=== PATIENT | female | born 1980 | race Two or more races ===

== ENCOUNTER 2020-01-16 12:25 | Outpatient (REF) | payer OTHER, SELFPAY ==
[2020-01-16 12:55] LABS: MANUAL DIFF FLAG NO
[2020-01-16 13:00] LABS: Basophils Percent Auto 0.2 % (0-2); Eosinophils Absolute Auto 0.1 X10*3/uL (0.0-0.4); Eosinophils Percent Auto 0.6 % (0-4); Hematocrit 41.4 % (37-47); Hemoglobin 13.8 g/dl (12.0-16.0); Imm Gran Abs Auto 0.04 X10*3/uL (0.00-0.03); Imm Gran Pct Auto 0.3 % (0.0-0.4); Lymphocytes Absolute Auto 4.3 X10*3/uL (1.2-4.9); Lymphocytes Percent Auto 33.5 % (20-40); Mean Corpuscular HGB Conc 33.3 g/dl (31.0-35.0); Mean Corpuscular Hemoglobin 31.5 pg (27.0-33.0); Mean Corpuscular Volume 94.5 fL (80-98); Mean Platelet Volume 10.1 fL (9.4-12.3); Monocytes Absolute Auto 0.8 X10*3/uL (0.1-1.2); Monocytes Percent Auto 5.9 % (2-11); Neutrophils Absolute Auto 7.6 X10*3/uL (2.0-8.3); Neutrophils Percent Auto 59.5 % (45-73); Platelet Count 293 X10*3/uL (160-400); Red Blood Count 4.38 X10*6/uL (4.20-5.50); Red Cell Distribution Width 13.2 % (11.0-16.0); White Blood Count 12.8 X10*3/uL (4.8-10.8)
[2020-01-16 14:11] LABS: Anion Gap 12 (12-20); Blood Urea Nitrogen 9 mg/dL (9-16); Carbon Dioxide 28 mmol/L (22-29); Chloride 104 mmol/L (96-108); Cholesterol 121 mg/dL; Estimated Glomerular Filt Rate > 60; Glucose Fasting 85 mg/dL (60-99); HDL Cholesterol 36 mg/dL; LDL Cholesterol Calculated 70 mg/dl; Potassium 4.7 mmol/l (3.3-5.1); Sodium 139 mmol/L (135-145); Triglycerides 77 mg/dL
[2020-01-16 14:34] LABS: TSH reflex Free T4 0.65 mIU/mL (0.32-4.0)
== END 2020-01-16 12:26 | disposition home or self-care (01) ==
LOC: HO.LAB 12:25
PROVIDERS: PCP Nurse Practitioner Family; Visit Provider Nurse Practitioner Family
DX: M19.90 Unspecified osteoarthritis, unspecified site (principal); J45.909 Unspecified asthma, uncomplicated; Z83.49 Family history of other endocrine, nutritional and metabolic diseases
CPT/HCPCS: 36415; 80048; 80061; 84443; 85025

== ENCOUNTER 2020-02-14 08:45 | Outpatient (REF) | payer OTHER, SELFPAY ==
[2020-02-21 12:03] LABS: HPV mRNA E6/E7 rflx Not Detected (Not Detected)
== END 2020-02-14 08:46 | disposition home or self-care (01) ==
LOC: HO.LAB 08:45
PROVIDERS: PCP Nurse Practitioner Family; Visit Provider Advanced Practice Midwife
DX: Z12.4 Encounter for screening for malignant neoplasm of cervix (principal)
CPT/HCPCS: 87624; 87625; 88142

== ENCOUNTER 2020-02-18 12:18 | Outpatient (REF) | payer OTHER, SELFPAY ==
--- NOTE | 2020-02-18 12:21 | MM_ITS ---
EXAMINATION: MM SCREENING DIGITAL BREAST TOMOSYNTHESIS, BILATERAL CLINICAL INFORMATION: Screening. Asymptomatic. No prior breast imaging. Age 40. No known family history breast cancer. The lifetime risk of breast cancer based on the Tyrer-Cuzick Model is 9%. COMPARISON: None (current study represents initial baseline exam). TECHNIQUE: Digital breast tomosynthesis is performed in both the craniocaudal and mediolateral oblique views along with computer-aided detection (CAD). Synthesized 2D images are generated from the tomosynthesis. FINDINGS: There are scattered areas of fibroglandular density (ACR BI-RADS breast composition Category b). There is benign-appearing parenchymal asymmetry right breast upper outer quadrant mid to posterior depth. Neither breast shows significant mass or architectural abnormality or abnormal calcifications. The axilla are unremarkable. The skin contours are smooth. MM/MM tomosynthesis screening BI IMPRESSION: No mammographic evidence of malignancy. ASSESSMENT: BI-RADS 2: Benign RECOMMENDATION: Routine annual mammography screening. This patient's information was entered into a reminder system with a target due date for their next mammogram.
== END 2020-02-18 12:19 | disposition home or self-care (01) ==
LOC: HO.MAMMO 12:18
PROVIDERS: PCP Nurse Practitioner Family; Visit Provider Advanced Practice Midwife
DX: Z12.31 Encounter for screening mammogram for malignant neoplasm of breast (principal)
CPT/HCPCS: 77063; 77067

== ENCOUNTER 2020-04-29 09:31 | Outpatient (RCR) | payer OTHER, SELFPAY | END 2020-07-07 16:11 | disposition other institution (70) | LOC: HO.OT 09:31 | PROVIDERS: PCP Physician Assistant; Visit Provider Physician Assistant | DX: M25.532 Pain in left wrist (principal) | CPT/HCPCS: 97166 ==

== ENCOUNTER 2020-04-30 09:18 | Outpatient (REF) | payer OTHER, SELFPAY | END 2020-04-30 09:19 | disposition home or self-care (01) | LOC: HO.LAB 09:18 | PROVIDERS: Visit Provider Internal Medicine | DX: Z20.822 Contact with and (suspected) exposure to COVID-19 (principal); R20.0 Anesthesia of skin; R20.2 Paresthesia of skin; M19.032 Primary osteoarthritis, left wrist; M93.1 Kienbock's disease of adults | CPT/HCPCS: 36415; 99202; C9803; U0003; U0005 ==

== ENCOUNTER 2020-04-30 09:31 | Outpatient (REF) | payer OTHER, SELFPAY ==
--- NOTE | ~2020-04-30 | XR_ITS ---
EXAMINATION: LEFT WRIST CLINICAL INFORMATION: Pain COMPARISON: None TECHNIQUE: 4 views of the left wrist including scaphoid view. FINDINGS: Patient is status post plate and side screw fixation of distal left radial fracture with hardware intact. There appears be neutral angulation of the radiocarpal joint. There is some narrowing of the radiocarpal joint with some mild irregularity and sclerosis. A screw is seen for fusion of the scaphoid and capitate degenerative changes seen about the proximal and mid carpal rows. There is compression fracture involving the lunate No definite acute fracture is appreciated. XR/XR wrist LT w scaphoid IMPRESSION: Postsurgical change of the left distal radius and wrist as described. Hardware intact. No definite acute fracture is appreciated.
== END 2020-04-30 09:32 | disposition home or self-care (01) ==
LOC: HO.HOSX 09:31
PROVIDERS: Visit Provider Orthopaedic Surgery
DX: M25.532 Pain in left wrist (principal); R20.0 Anesthesia of skin; R20.2 Paresthesia of skin
CPT/HCPCS: 73110

== ENCOUNTER 2020-06-03 10:22 | Outpatient (REF) | payer OTHER, SELFPAY ==
[2020-06-03 11:03] LABS: COVID-19 Test Negative (Negative)
== END 2020-06-03 10:23 | disposition home or self-care (01) ==
LOC: HO.LAB 10:22
PROVIDERS: Visit Provider Internal Medicine
DX: Z20.822 Contact with and (suspected) exposure to COVID-19 (principal)
CPT/HCPCS: 36415; 87635; C9803

== ENCOUNTER 2020-09-16 14:45 | Outpatient (REF) | payer OTHER, SELFPAY ==
[2020-09-18 21:26] LABS: TS Negative Control Passed; TS Panel A 0; TS Panel B 0; TS Positive Control Passed; TSpotTB Negative (SeeBelow)
== END 2020-09-16 14:46 | disposition home or self-care (01) ==
LOC: HO.LAB 14:45
PROVIDERS: PCP Physician Assistant; Visit Provider Physician Assistant
DX: Z01.84 Encounter for antibody response examination (principal); Z11.1 Encounter for screening for respiratory tuberculosis
CPT/HCPCS: 36415; 86481

== ENCOUNTER 2020-12-19 10:23 | Outpatient (REF) | payer OTHER, SELFPAY ==
[2020-12-19 11:17] LABS: Hematocrit 39.8 % (37-47); Hemoglobin 13.1 g/dl (12.0-16.0); Mean Corpuscular HGB Conc 32.9 g/dl (31.0-35.0); Mean Corpuscular Hemoglobin 30.2 pg (27.0-33.0); Mean Corpuscular Volume 91.7 fL (80-98); Mean Platelet Volume 10.1 fL (9.4-12.3); Platelet Count 367 X10*3/uL (160-400); Red Blood Count 4.34 X10*6/uL (4.20-5.50); Red Cell Distribution Width 13.9 % (11.0-16.0); White Blood Count 8.5 X10*3/uL (4.8-10.8)
[2020-12-19 11:21] LABS: Estimated Average Glucose 105 mg/dL; Hemoglobin A1c % 5.3 %
[2020-12-19 12:02] LABS: Alanine Aminotransferase 10 U/L (0-31); Albumin Level 4.3 g/dL (3.5-5.0); Alkaline Phosphatase 71 U/L (39-117); Anion Gap 12 (12-20); Aspartate Amino Transferase 12 U/L (5-31); Bilirubin Total 0.3 mg/dL (0.0-1.0); Blood Urea Nitrogen 9 mg/dL (9-16); Calcium 9.6 mg/dL (8.4-10.2); Carbon Dioxide 28 mmol/L (22-29); Chloride 105 mmol/L (96-108); Cholesterol 143 mg/dL; Estimated Glomerular Filt Rate > 60; Glucose Fasting 92 mg/dL (60-99); HDL Cholesterol 35 mg/dL; LDL Cholesterol Calculated 89 mg/dl; Potassium 5.3 mmol/L (3.3-5.1); Sodium 140 mmol/L (135-145); Total Protein 7.2 g/dL (6.5-8.0); Triglycerides 96 mg/dL
[2020-12-19 12:07] LABS: TSH reflex Free T4 0.43 uIU/mL (0.32-4.0)
== END 2020-12-19 10:24 | disposition home or self-care (01) ==
LOC: HO.LAB 10:23
PROVIDERS: PCP Physician Assistant; Visit Provider Physician Assistant
DX: Z13.29 Encounter for screening for other suspected endocrine disorder (principal); Z13.220 Encounter for screening for lipoid disorders; I10 Essential (primary) hypertension; J45.909 Unspecified asthma, uncomplicated
CPT/HCPCS: 36415; 80053; 80061; 83036; 84443; 85027

== ENCOUNTER 2021-11-23 08:21 | Outpatient (REF) | payer OTHER, SELFPAY ==
[2021-11-23 09:13] LABS: Hematocrit 39.7 % (37.0-47.0); Hemoglobin 13.3 g/dl (12.0-16.0); Mean Corpuscular HGB Conc 33.5 g/dl (31.0-35.0); Mean Corpuscular Hemoglobin 30.4 pg (27.0-33.0); Mean Corpuscular Volume 90.8 fL (80.0-98.0); Mean Platelet Volume 9.8 fL (9.4-12.3); Platelet Count 361 X10*3/uL (160-400); Red Blood Count 4.37 X10*6/uL (4.20-5.50); Red Cell Distribution Width 14.8 % (11.0-16.0); White Blood Count 8.3 X10*3/uL (4.8-10.8)
[2021-11-23 09:39] LABS: Alanine Aminotransferase 12 U/L (0-31); Albumin Level 4.1 g/dL (3.5-5.0); Alkaline Phosphatase 59 U/L (39-117); Anion Gap 15 (12-20); Aspartate Amino Transferase 14 U/L (5-31); Bilirubin Total 0.4 mg/dL (0.0-1.0); Blood Urea Nitrogen 11 mg/dL (9-16); Calcium 9.7 mg/dL (8.4-10.2); Carbon Dioxide 26 mmol/L (22-29); Chloride 105 mmol/L (96-108); Estimated Glomerular Filt Rate > 60; Glucose Fasting 88 mg/dL (60-99); Potassium 4.8 mmol/L (3.3-5.1); Sodium 141 mmol/L (135-145); Total Protein 6.7 g/dL (6.5-8.0)
[2021-11-23 10:01] LABS: TSH reflex Free T4 0.33 uIU/mL (0.32-4.0)
== END 2021-11-23 08:22 | disposition home or self-care (01) ==
LOC: HO.LAB 08:21
PROVIDERS: PCP Physician Assistant; Visit Provider Physician Assistant
DX: Z13.1 Encounter for screening for diabetes mellitus (principal); Z13.29 Encounter for screening for other suspected endocrine disorder
CPT/HCPCS: 36415; 80053; 84443; 85027

== ENCOUNTER 2022-03-26 15:08 | Outpatient (REF) | payer OTHER, SELFPAY ==
--- NOTE | ~2022-03-26 | XR_ITS ---
EXAMINATION: XR ELBOW, RIGHT CLINICAL INFORMATION: Pain COMPARISON: None TECHNIQUE: AP, lateral, and oblique views of the right elbow. FINDINGS: No visible acute fracture or dislocation. No significant joint effusion. Alignment is anatomic. Joint spaces are maintained. No abnormal soft tissue calcification. XR/XR elbow RT min 3V IMPRESSION: No acute osseous abnormality seen.
== END 2022-03-26 15:09 | disposition home or self-care (01) ==
LOC: HO.XRAY 15:08
PROVIDERS: PCP Physician Assistant; Visit Provider Nurse Practitioner Family
DX: M25.521 Pain in right elbow (principal)
CPT/HCPCS: 73080

== ENCOUNTER → 2022-04-06 13:57 | Outpatient (BNVA) | payer OTHER, SELFPAY | PROVIDERS: PCP Physician Assistant; Visit Provider Physician Assistant | DX: M77.11 Lateral epicondylitis, right elbow (principal) | CPT/HCPCS: 99202 ==

== ENCOUNTER 2022-04-12 13:52 | Outpatient (REF) | payer OTHER, SELFPAY ==
[2022-04-12 14:40] LABS: Influenza A PCR NEGATIVE (Negative); Influenza B PCR NEGATIVE (Negative); Resp Syncy Virus RNA Qual PCR NEGATIVE (Negative); SARS COV2 PCR INHOUSE NEGATIVE (Negative)
== END 2022-04-12 13:53 | disposition home or self-care (01) ==
LOC: HO.LNP 13:52
PROVIDERS: Visit Provider Physician Assistant
DX: Z20.822 Contact with and (suspected) exposure to COVID-19 (principal); B34.9 Viral infection, unspecified
CPT/HCPCS: 0241U

== ENCOUNTER 2022-05-05 09:57 | Outpatient (REF) | payer OTHER, SELFPAY ==
--- NOTE | ~2022-05-05 | MM_ITS ---
EXAMINATION: MM SCREENING DIGITAL BREAST TOMOSYNTHESIS, BILATERAL CLINICAL INFORMATION: Screening. Asymptomatic. The lifetime risk of breast cancer based on the Tyrer-Cuzick Model is 9%. COMPARISON: Mammography: 02/18/2020 (baseline) TECHNIQUE: Digital breast tomosynthesis is performed in both the craniocaudal and mediolateral oblique views along with computer-aided detection (CAD). Synthesized 2D images are generated from the tomosynthesis. FINDINGS: There are scattered areas of fibroglandular density (ACR BI-RADS breast composition Category b). Parenchymal pattern is similar to prior baseline exam. There is no developing density or architectural abnormality. There are no significant masses, abnormal calcifications, or other abnormalities. The axilla and skin contours are unremarkable. MM/MM tomosynthesis screening BI IMPRESSION: No mammographic evidence of malignancy. ASSESSMENT: BI-RADS 2: Benign RECOMMENDATION: Routine annual mammography screening. This patient's information was entered into a reminder system with a target due date for their next mammogram.
== END 2022-05-05 09:58 | disposition home or self-care (01) ==
LOC: HO.MAMMO 09:57
PROVIDERS: PCP Physician Assistant; Visit Provider Physician Assistant
DX: Z12.31 Encounter for screening mammogram for malignant neoplasm of breast (principal)
CPT/HCPCS: 77063; 77067

== ENCOUNTER 2022-06-15 11:30 | Outpatient (RCR) | payer OTHER, SELFPAY ==
--- NOTE | 2022-05-14 14:41 | MHC.OT.EP ---
[address] [phone] Occupational Therapy Plan of Care Patient Name: Danni Roberts Date of Evaluation: 05/14/22 Diagnosis: Right elbow pain Pain Location: 3-9 right elbow Pain Score: 9 Pain Scale Used: Numeric (0 - 10) Aggravating Factors: Shoulder and elbow motion. gripping Alleviating Factors: Arm in sling. 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 Today she presents with elbow pain with AROM worsening with gripping activities Saw Feeder strength is 5 lb inc to 15 lb with use of a CFB trialed today Pt will benefit from OT for continued pt ed on self management and OT treatment for elbow pain She is scheduled with Orthopedics on 05/24/22 , anticipating an elbow injection Frequency and Duration: The patient will be seen 2x wk x 6 wks Short Term Goals: Demo indep with thermal modalities for pain Demo indep with activity modifications with homemaking tasks Demo inc ease with elbow AROM Dec elbow pain to 6/10 at worst with protection techniques as needed Manufacturing Manager Goals: Demo pain free elbow AROM Demo right vault manager to > 25 lb Demo proper tech with lifting for elbow protection Pain-free at rest Quick DASH to < 30 pts Treatment Plan: Therapeutic Exercise Therapeutic Activity Home Exercise Program Patient Education ADL Training Ultrasound Iontophoresis MHP Cold Packs Soft Tissue Mobilization Electronically Signed By: Lucía Gross OT CHT CLT Please Sign and return to therapist. Thank you once again for your referral.
--- NOTE | 2022-06-30 10:28 | MHC.OT.DC ---
[address] [phone] F: [phone] Occupational Therapy Discharge Note Patient Name: Danni Roberts Provider: Mary Lou Chris Diagnosis: Right elbow pain Date of Surgery: Date of Evaluation: 05/14/22 Date of Discharge: 06/30/22 Treatments to Date: 4 Cancellations to Date: 3 No Shows to Date: 3 Discharge Status: Recommend MD Follow-up Visit Non-compliance Discharge Summary: Some improvement in pain noted with progression of exercise tolerance, other arellano no change noted Electronically Signed By: Lucía Gross OT CHT CLT Reviewed/agree with student documentation: Therapist: Please Sign and return to therapist, thank you for your referral.
== END 2022-06-30 10:29 | disposition home or self-care (01) ==
LOC: HO.OT 11:30
PROVIDERS: PCP Physician Assistant; Visit Provider Nurse Practitioner Family
DX: M25.521 Pain in right elbow (principal)
CPT/HCPCS: 97033; 97110; 97165

== ENCOUNTER 2022-07-09 09:41 | Outpatient (REF) | payer OTHER, SELFPAY ==
--- NOTE | ~2022-07-09 | XR_ITS ---
EXAMINATION: XR LUMBOSACRAL SPINE CLINICAL INFORMATION: Low back pain. COMPARISON: None. TECHNIQUE: Three views of the lumbosacral spine. FINDINGS: There is transitional lumbosacral anatomy. There is mild levoscoliosis of the lumbar spine. Normal sagittal alignment. Vertebral body heights are maintained. Intervertebral disc spaces are preserved. A surgical clip projects over the pelvis. Sacroiliac joints are intact. XR/XR lumbar spine 2-3V IMPRESSION: No acute abnormality.
[2022-07-09 10:29] LABS: Hematocrit 40.6 % (37.0-47.0); Hemoglobin 13.5 g/dl (12.0-16.0); Mean Corpuscular HGB Conc 33.3 g/dl (31.0-35.0); Mean Corpuscular Hemoglobin 30.4 pg (27.0-33.0); Mean Corpuscular Volume 91.4 fL (80.0-98.0); Mean Platelet Volume 9.9 fL (9.4-12.3); Platelet Count 285 X10*3/uL (160-400); Red Blood Count 4.44 X10*6/uL (4.20-5.50); Red Cell Distribution Width 14.6 % (11.0-16.0); White Blood Count 8.3 X10*3/uL (4.8-10.8)
[2022-07-09 11:15] LABS: Alanine Aminotransferase 9 U/L (0-31); Albumin Level 4.3 g/dL (3.5-5.0); Alkaline Phosphatase 53 U/L (39-117); Anion Gap 11 (12-20); Aspartate Amino Transferase 14 U/L (5-31); Bilirubin Total 0.5 mg/dL (0.0-1.0); Blood Urea Nitrogen 11 mg/dL (9-16); Calcium 9.7 mg/dL (8.4-10.2); Carbon Dioxide 27 mmol/L (22-29); Chloride 108 mmol/L (96-108); Estimated Glomerular Filt Rate > 60; Glucose Fasting 87 mg/dL (60-99); Potassium 5.1 mmol/L (3.3-5.1); Sodium 141 mmol/L (135-145); Total Protein 6.8 g/dL (6.5-8.0)
[2022-07-09 11:24] LABS: HIV AB/AG Nonreactive (Nonreactive); HIV Num 1 0.07 S/CO (0.00-0.99)
[2022-07-09 11:46] LABS: Folate 11.5 ng/mL (> or = 4.0); Vitamin B12 638 pg/mL (200-900)
== END 2022-07-09 09:42 | disposition home or self-care (01) ==
LOC: HO.XRAY 09:41
PROVIDERS: PCP Physician Assistant; Visit Provider Physician Assistant
DX: Z13.1 Encounter for screening for diabetes mellitus (principal); Z11.4 Encounter for screening for human immunodeficiency virus [HIV]; Z11.3 Encounter for screening for infections with a predominantly sexual mode of transmission; E53.8 Deficiency of other specified B group vitamins; R63.4 Abnormal weight loss; M54.50 Low back pain, unspecified
CPT/HCPCS: 36415; 72100; 80053; 82607; 82746; 85027; 87389

== ENCOUNTER 2022-07-22 11:51 | Outpatient (REF) | payer OTHER, SELFPAY ==
--- NOTE | ~2022-07-22 | XR_ITS ---
EXAMINATION: XR LUMBOSACRAL SPINE CLINICAL INFORMATION: Low back pain. COMPARISON: 07/09/[address] scan of the abdomen and pelvis dated 07/23/2009. TECHNIQUE: Three views of the lumbosacral spine. FINDINGS: L5-S1 is transitional with sacralization of L5. A rudimentary disc is seen at L5-S1. There is normal lumbar lordosis and spinal alignment. The vertebral bodies are intact. The remainder of the intervertebral disc spaces are unremarkable. The soft tissues are unremarkable. XR/XR lumbar spine 2-3V IMPRESSION: Transitional L5-S1. Rudimentary disc at L5-S1. No acute abnormality or significant degenerative changes.
== END 2022-07-22 11:52 | disposition home or self-care (01) ==
LOC: HO.HMGCX 11:51
PROVIDERS: PCP Physician Assistant; Visit Provider Nurse Practitioner Family
DX: M54.50 Low back pain, unspecified (principal)
CPT/HCPCS: 72100

== ENCOUNTER → 2022-08-03 08:39 | Outpatient (BNVA) | payer OTHER, SELFPAY | PROVIDERS: PCP Physician Assistant; Visit Provider Physician Assistant | DX: M77.11 Lateral epicondylitis, right elbow (principal) | CPT/HCPCS: 20551; 99212; J1040 ==

== ENCOUNTER 2022-08-05 08:39 | Outpatient (REF) | payer OTHER, SELFPAY ==
[2022-08-05 09:30] LABS: Hemoglobin 13.2 g/dl (12.0-16.0); Mean Corpuscular HGB Conc 33.8 g/dl (31.0-35.0); Mean Corpuscular Volume 91.5 fL (80.0-98.0); Mean Platelet Volume 10.5 fL (9.4-12.3); Platelet Count 295 X10*3/uL (160-400); Red Blood Count 4.26 X10*6/uL (4.20-5.50); Red Cell Distribution Width 14.6 % (11.0-16.0); White Blood Count 13.2 X10*3/uL (4.8-10.8)
[2022-08-05 10:51] LABS: Iron 34 mcg/dL (30-160); Percent Iron Saturation 13 % (15-50); Total Iron Binding Capacity 269 mcg/dL (228-428); Unsaturated Iron Binding 235 ug/dL
== END 2022-08-05 08:40 | disposition home or self-care (01) ==
LOC: HO.LAB 08:39
PROVIDERS: PCP Physician Assistant; Visit Provider Physician Assistant
DX: D50.9 Iron deficiency anemia, unspecified (principal); R53.1 Weakness
CPT/HCPCS: 36415; 83540; 85027

== ENCOUNTER 2022-08-30 09:47 | Outpatient (RCR) | payer OTHER, SELFPAY ==
--- NOTE | 2022-09-01 09:23 | MHC.PT.EP ---
[facility] [place] Office [place] Office [place] Office [address] [phone] F: [phone] F: [phone] F: [phone] F: [phone] Physical Therapy Plan of Care Date of Evaluation: Date of Surgery: Diagnosis: low back pain and thoracolumbar and lumbosacral intervertebral disc disorder. (MD Dx) bilateral lumbar radiculopathy and core weakness. (PT Dx) Assessment: Patient is a pleasant 42 y.o. female who is referred to PT by Sid Damon PA-C, with Dx of low back pain and thoracolumbar and lumbosacral intervertebral disc disorder. PT diagnosis is bilateral lumbar radiculopathy and core weakness. Patient impairments include pain, radiculopathy, limited ROM, weakness in core and hips, labored transfers. Patient current functional limitations are lying in bed, rolling over in bed, supine to sit, sit to stand, bend/squat to clean, prolonged sitting, prolonged walking. Patient will benefit from skilled PT to address aforementioned impairments and functional limitations to meet established goals. Frequency and Duration: The patient will be seen 1-2x/week for 4 weeks Short Term Goals: 2 weeks Patient demonstrates consistency and independence with HEP to self manage symptoms. Patient is able to centralize LE radicular symptoms with education and exercises. Nursing Home Goals: 4 weeks Patient presents with increased bilateral glute med strength 4+/5 to be able to perform sit to stand without sxs. Patient presents with increased lumbar flexion 95 degrees to be able to bend/squat to clean. Treatment Plan: Modalities to reduce pain, spasms and effusion. Manual therapy to restore motion and function. Therapeutic exercise to improve strength and flexibility. Neuromuscular re-education for posture and balance. Therapeutic activities to return to functional activities of daily living. Electronically signed by: Lambert Yañez, PT, DPT Please sign and return to therapist. Thank you for your referral.
--- NOTE | 2022-10-05 14:18 | MHC.PT.DC ---
[facility] [place] Office [place] Office [place] Office [address] [phone] F: [phone] F: [phone] F: [phone] F: [phone] Physical Therapy Discharge Report Diagnosis: low back pain and thoracolumbar and lumbosacral intervertebral disc disorder. (MD Dx) bilateral lumbar radiculopathy and core weakness. (PT Dx) Date of Surgery: Date of Evaluation: 08/30/22 Date of Discharge: 10/05/22 Treatments to Date: 1 Cancellations to Date: 2 No Shows to Date: 2 Discharge Status: Visit Non-compliance Discharge Summary: Patient canceled or did not show to any FUP visits after PT initial evaluation. Therefore she is discharged from PT at this time. Unable to determine effectiveness of PT on patient condiditoin due to she did not attend and FUP visits. Electronically signed by: Lambert Yañez, PT, DPT Please sign and return to therapist. Thank you for your referral.
== END 2022-10-05 14:19 | disposition home or self-care (01) ==
LOC: HO.PT 09:47
PROVIDERS: PCP Physician Assistant; Visit Provider Physician Assistant
DX: M51.9 Unspecified thoracic, thoracolumbar and lumbosacral intervertebral disc disorder (principal); M54.50 Low back pain, unspecified
CPT/HCPCS: 97110; 97161

== ENCOUNTER 2023-01-19 10:28 | Outpatient (AMB) | payer OTHER, SELFPAY ==
[2023-01-19 10:44] VITALS: BMI 19.9
--- NOTE | 2023-01-19 10:44 | A.OFFVIS_ITS ---
Intake VS Expanded 01/19/23 10:44 Height 5 ft 3 in Weight 112 lb 6.972 oz BMI 19.9 Intake Visit Reasons: Abnormal Weight Loss Allergies penicillin V Allergy (Unknown, Verified 08/10/22 15:54) rash Penicillins Allergy (Unknown, Verified 08/10/22 15:54) Rash bupropion [From Wellbutrin SR] Adverse Reaction (Intermediate, Verified 08/10/22 15:54) Hallucinations trazodone Adverse Reaction (Intermediate, Verified 08/10/22 15:54) Drowsy Percocet Allergy (Unknown, Uncoded 08/10/22 15:54) itching HPI Nutrition Presentation Details Pt presents for MNT for abnormal weight loss. Pt was referred by Bobbi Damon, PCP Pt 's weight at 119 lb in 05/2022, (121-126 in 2021) , 142 (2020) Pt reports having hx of TOSHIA and MDD. She reports working on having snacks throughout the day to prevent weight loss. Pt denies vomiting, denies diarrhea, constipation, reports sometimes having reduced appetite. Pt cooks for self 6-7 am skips breakfast for the most part always has coffee with brown sugar/heavy cream (likes scrambled eggs or sandwich , orange or coffee brown sugar heavy cream) 11 am drinks juice and pork sandwich) , 5 pm : pork chop and rice or rice with beef steak and potatoes and heidi snacking rice cakes or doritos, drinks juice food frequency: fish twice /week : with celery and onions milk /day 0-1/day fruits weekly 2 -3 times starches: 12-16 oz/ physical: daily life activities, SAV-Fomjtuy-Rc.Jeor Equation Height 5 ft 3 in Weight 112 lb Resting Metabolic Rate 1135.08 Calculated Activity Level Moderate Activity Calories Needed to Maintain Weight 1759.37 Diagnosis Nutrition problem #1 unintended weight loss As related to (etiology) #1 diagnosis As evidenced by (sign/symptom) #1 weight loss Monitoring/Goals Nutrition problem monitoring level of knowledge/skill and weight Outcome comment Incorporate breakfast on a daily basis Most Recent Diabetes Results: Creatinine 0.78 mg/dL (0.5-1.4) 07/09/22 Blood Urea Nitrogen 11 mg/dL (9-16) 07/09/22 Sodium 141 mmol/L (135-145) 07/09/22 Potassium 5.1 mmol/L (3.3-5.1) 07/09/22 Chloride 108 mmol/L (96-108) 07/09/22 Carbon Dioxide 27 mmol/L (22-29) 07/09/22 Calcium 9.7 mg/dL (8.4-10.2) 07/09/22 AST 14 U/L (5-31) 07/09/22 ALT 9 U/L (0-31) 07/09/22 Total Protein 6.8 g/dL (6.5-8.0) 07/09/22 Albumin 4.3 g/dL (3.5-5.0) 07/09/22 [facility] Medical History Arthritis Asthma Carpal tunnel syndrome Ectopic Family history of thyroid disease Kienb?ck's disease Surgical History History of carpal tunnel release History of ectopic History of surgery on arm Family History Father Arthritis Diabetes mellitus HTN (hypertension) Asthma Mother Arthritis Asthma Diabetes mellitus HTN (hypertension) Herniated disc Anxiety Mental health disorder Maternal Grandmother Arthritis Diabetes mellitus Maternal Grandfather Arthritis Diabetes mellitus Paternal Grandmother Arthritis Diabetes mellitus Paternal Grandfather Arthritis Diabetes mellitus Social History Housing: Apartment Alcohol intake: current Alcohol intake frequency: holidays/special occasions only Patient Tobacco Use Status: Current everyday Tobacco user Tobacco use type: Cigarette Cigarettes Per Day: 8 e-Cigarette/Vaping Use: Never Used Second Hand Smoke Exposure: Yes service: No Current occupational status: employed 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[employer] Gender identity: Female Cognitive needs: No Hearing needs: No Vision needs: Yes (Glasses) Female Reproductive History Menstrual Age of Menarche: 13 Assessment & Plan Assessment & Plan (1) Weight loss: Code(s): R63.4 - Abnormal weight loss Plan: wt : 51 kg Est kcal needs as per MSJ: 1800 + 1000/2000 = 9315-2250 clinton (40% carb, 30% protein/fat) Est fluid needs as per 25-30 ml/d: 1500 Est prot per day as per 1 g/kg bw: 51 Recommend fiber intake : 8-10 g per day and gradually increase to 25-28 g per day for women and 35-38 g for men or as tolerated Recommend sodium intake per day : less than 2000 mg Educated patient on: ( R = reviewed V = verbalizes understanding N/R = needs review N/A = not applicable Increasing calories by 500-1000 per day to promote weight gain * Patient Instructions: Include breakfast meal on a daily basis having a combination of protein/starch/fruit and fats: see meal ideas printed * Sand with egg/ham/cheese /lettuce/tomato), coffee/milk/sugar * oatmeal cereal with milk, fruit/nuts * meal supplement continue to have lunch/dinner/snacks as established Drink juice or milk with your meals Coding Level of Care Code Nutr Indiv Intake (17972) Diagnoses Weight loss R63.4 Time Spent (min) 30
[2023-02-01 13:13] VITALS: BMI 19.8
== END 2023-01-19 11:25 | disposition home or self-care (01) ==
PROVIDERS: PCP Physician Assistant; Visit Provider Dietitian, Registered
DX: R63.4 Abnormal weight loss (principal)

== ENCOUNTER → 2023-01-19 10:28 | Outpatient (BNVA) | payer OTHER, SELFPAY | PROVIDERS: PCP Physician Assistant; Visit Provider Dietitian, Registered | DX: R63.4 Abnormal weight loss (principal) | CPT/HCPCS: 97802 ==

== ENCOUNTER 2023-02-16 10:06 | Outpatient (AMB) | payer OTHER, SELFPAY ==
[2023-02-16 10:17] VITALS: BMI 19.9
--- NOTE | 2023-02-16 10:17 | A.OFFVIS_ITS ---
Intake VS Expanded 02/16/23 10:17 Height 5 ft 3 in Weight 112 lb 6.972 oz BMI 19.9 Intake Visit Reasons: monitor weight Allergies penicillin V Allergy (Unknown, Verified 08/10/22 15:54) rash Penicillins Allergy (Unknown, Verified 08/10/22 15:54) Rash bupropion [From Wellbutrin SR] Adverse Reaction (Intermediate, Verified 08/10/22 15:54) Hallucinations trazodone Adverse Reaction (Intermediate, Verified 08/10/22 15:54) Drowsy Percocet Allergy (Unknown, Uncoded 08/10/22 15:54) itching HPI Nutrition Presentation Details Pt presents for MNT for abnormal weight loss Wt Hx: 112 (12/2022, 01/2023) 110 (07/2022), at 119 lb in 05/2022, (121-126 in 2021) , 142 (2020) Pt reports having hx of General Anxiety Disorder and Major Depressive Disorder. Pt denies vomiting, denies diarrhea, constipation. Reports sometimes having reduced appetite. She reports working on having snacks throughout the day to prevent weight loss, snacks consist of starches and Pt was recommended to include protein with the starches. Meal consist of B: skips L : 1 cup of rice with beans sauce, 1 pork chop , coffee with milk and sugar or orange juice or heidi) D: 1 cup yellow rice/bistec, green montalvo, corn, juice snack 8-9 pm 1 glass of whole milk with chocolate or creamsicle physical activity: daily life activities ETOH/SMoke: denies Reports taking ferrous sulfate with a meal Most Recent Diabetes Results: No Data to Display [facility] Medical History Arthritis Asthma Carpal tunnel syndrome Ectopic Family history of thyroid disease Kienb?ck's disease Surgical History History of carpal tunnel release History of ectopic History of surgery on arm Family History Father Arthritis Diabetes mellitus HTN (hypertension) Asthma Mother Arthritis Asthma Diabetes mellitus HTN (hypertension) Herniated disc Anxiety Mental health disorder Maternal Grandmother Arthritis Diabetes mellitus Maternal Grandfather Arthritis Diabetes mellitus Paternal Grandmother Arthritis Diabetes mellitus Paternal Grandfather Arthritis Diabetes mellitus Social History Housing: Apartment Alcohol intake: current Alcohol intake frequency: holidays/special occasions only Patient Tobacco Use Status: Current everyday Tobacco user Tobacco use type: Cigarette Cigarettes Per Day: 8 e-Cigarette/Vaping Use: Never Used Second Hand Smoke Exposure: Yes service: No Current occupational status: employed 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 Cognitive needs: No Hearing needs: No Vision needs: Yes (Glasses) Female Reproductive History Menstrual Age of Menarche: 13 Assessment & Plan Assessment & Plan (1) Weight loss: Code(s): R63.4 - Abnormal weight loss Plan: wt : 51 kg Est kcal needs as per MSJ: 1800 + 1000/2000 = 5504-9002 clinton (40% carb, 30% protein/fat) Est fluid needs as per 25-30 ml/d: 1500 Est prot per day as per 1 g/kg bw: 51 Recommend fiber intake : 8-10 g per day and gradually increase to 25-28 g per day for women and 35-38 g for men or as tolerated Recommend sodium intake per day : less than 2000 mg Educated patient on: ( R = reviewed V = verbalizes understanding N/R = needs review N/A = not applicable Increasing calories by 500-1000 per day to promote weight gain Including protein with each snack and having nutrient dense beverages * Patient Instructions: Include 2 serving of protein with each snack and have nutrient dense beverages with each snack (4 times a day ) * 1 cup cottage cheese with bread and glass of juice * tuna with olive oil or mann with 10 crackers and glass of whole milk * cereal with 1/2 cup of trail mix added and whole milk * peanut butter and jelly sandwich and glass of milk Coding Level of Care Code Nutr Indiv Subseq (38363) Diagnoses Weight loss R63.4 Time Spent (min) 30
== END 2023-02-16 10:49 | disposition home or self-care (01) ==
PROVIDERS: PCP Physician Assistant; Visit Provider Dietitian, Registered
DX: R63.4 Abnormal weight loss (principal)

== ENCOUNTER → 2023-02-16 10:06 | Outpatient (BNVA) | payer OTHER, SELFPAY | PROVIDERS: PCP Physician Assistant; Visit Provider Dietitian, Registered | DX: R63.4 Abnormal weight loss (principal) | CPT/HCPCS: 97803 ==

== ENCOUNTER 2023-02-25 08:32 | Outpatient (REF) | payer OTHER, SELFPAY | END 2023-02-25 08:33 | disposition home or self-care (01) | LOC: HO.HOSX 08:32 | PROVIDERS: Visit Provider Physician Assistant | DX: Z13.89 Encounter for screening for other disorder (principal) ==

== ENCOUNTER 2023-03-24 08:56 | Outpatient (AMB) | payer OTHER, SELFPAY ==
--- NOTE | 2023-03-24 09:06 | A.OFFVIS_ITS ---
Intake VS Expanded 03/24/23 09:15 Height 5 ft 3 in Weight 115 lb 4.828 oz BMI 20.4 Intake Visit Reasons: Monitor weight/LVM Allergies penicillin V Allergy (Unknown, Verified 08/10/22 15:54) rash Penicillins Allergy (Unknown, Verified 08/10/22 15:54) Rash bupropion [From Wellbutrin SR] Adverse Reaction (Intermediate, Verified 08/10/22 15:54) Hallucinations trazodone Adverse Reaction (Intermediate, Verified 08/10/22 15:54) Drowsy Percocet Allergy (Unknown, Uncoded 08/10/22 15:54) itching HPI Nutrition Presentation Details Pt presents for MNT for abnormal weight loss. Pt has hx of TOSHIA, MDD. Pt 's weight hx at 119 lb in 05/2022, (121-126 in 2021) , 142 (2020) Pt reports having good and not so good days, some days has better appetite than others . 6-7 am coffee with brown sugar and heavy cream 11 am (steak and cheese sand) and powera de beverage 1pm: seeds/nuts 5pm: 1 cup white rice and beef stew 8pm cereal with milk or chips with dips Cymraes onion dips , powerade or heidi reports having daily bowel movements color of urine- sometimes dark other times light color c/o of lack of appetite at times - Pt reports taking mirtazapine for depression Most Recent Diabetes Results: No Data to Display [facility] Medical History Arthritis Asthma Carpal tunnel syndrome Ectopic Family history of thyroid disease Kienb?ck's disease Surgical History History of carpal tunnel release History of ectopic History of surgery on arm Family History Father Arthritis Diabetes mellitus HTN (hypertension) Asthma Mother Arthritis Asthma Diabetes mellitus HTN (hypertension) Herniated disc Anxiety Mental health disorder Maternal Grandmother Arthritis Diabetes mellitus Maternal Grandfather Arthritis Diabetes mellitus Paternal Grandmother Arthritis Diabetes mellitus Paternal Grandfather Arthritis Diabetes mellitus Social History Housing: Apartment Alcohol intake: current Alcohol intake frequency: holidays/special occasions only Patient Tobacco Use Status: Current everyday Tobacco user Tobacco use type: Cigarette Cigarettes Per Day: 8 e-Cigarette/Vaping Use: Never Used Second Hand Smoke Exposure: Yes service: No Current occupational status: employed 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 Cognitive needs: No Hearing needs: No Vision needs: Yes (Glasses) Female Reproductive History Menstrual Age of Menarche: 13 Assessment & Plan Assessment & Plan (1) Weight loss: Code(s): R63.4 - Abnormal weight loss Plan: wt : 51 kg (02/12), 52 kg (03/2023) Est kcal needs as per MSJ: 1800 + 1000/2000 = 7144-7467 clinton (40% carb, 30% protein/fat) Est fluid needs as per 25-30 ml/d: 1500 Est prot per day as per 1 g/kg bw: 51 Recommend fiber intake : 8-10 g per day and gradually increase to 25-28 g per day for women and 35-38 g for men or as tolerated Recommend sodium intake per day : less than 2000 mg Educated patient on: ( R = reviewed V = verbalizes understanding N/R = needs review N/A = not applicable Increasing calories by 500-1000 per day to promote weight gain Including protein with each snack and having nutrient dense beverages * Patient Instructions: Work on prevention of weight loss Continue working on having 3 meals per day , including protein and starches and choose at least one serving of dairy/fruit/vegetable. Have a dessert of your choice with the meal Choose nutrient dense beverages (whole milk with ovaltine added , flavors added (ashley, carnation instant breakfast of your preferred flavor juices , fruti shakes ) Gradually increase the portion of the rice or pasta , cereal, starches in general by 1/2 cup next follow up - review exercise Coding Level of Care Code Nutr Indiv Subseq (84128) Diagnoses Weight loss R63.4 Time Spent (min) 20
[2023-03-24 09:15] VITALS: BMI 20.4
== END 2023-03-24 09:28 | disposition home or self-care (01) ==
PROVIDERS: PCP Physician Assistant; Visit Provider Dietitian, Registered
DX: R63.4 Abnormal weight loss (principal)

== ENCOUNTER → 2023-03-24 08:56 | Outpatient (BNVA) | payer OTHER, SELFPAY | PROVIDERS: PCP Physician Assistant; Visit Provider Dietitian, Registered | DX: R63.4 Abnormal weight loss (principal); Z68.20 Body mass index [BMI] 20.0-20.9, adult; Z71.3 Dietary counseling and surveillance | CPT/HCPCS: 97803 ==

== ENCOUNTER 2023-04-01 12:49 | Outpatient (REF) | payer OTHER, SELFPAY ==
--- NOTE | ~2023-04-01 | XR_ITS ---
EXAMINATION: XR WRIST, RIGHT CLINICAL INFORMATION: Pain in unspecified wrist. COMPARISON: None available. TECHNIQUE: 4 views of the right wrist including scaphoid view. FINDINGS: Alignment and joint spaces are preserved. No displaced fracture. A few small scattered cystic lucencies in the carpal bones. XR/XR wrist RT w scaphoid IMPRESSION: No displaced fracture. Recommend follow-up imaging in 10-14 days if fracture is suspected.
== END 2023-04-01 12:50 | disposition home or self-care (01) ==
LOC: HO.HOSX 12:49
PROVIDERS: Visit Provider Physician Assistant
DX: M77.11 Lateral epicondylitis, right elbow (principal); M25.532 Pain in left wrist
CPT/HCPCS: 20550; 73110; 99212; J1100

== ENCOUNTER 2023-04-01 13:52 | Outpatient (AMB) | payer OTHER, SELFPAY ==
[2023-04-01 14:02] VITALS: BMI 20.4
--- NOTE | 2023-04-01 14:02 | A.OFFVIS_ITS ---
Intake Vital Signs 04/01/23 14:02 Height 5 ft 3 in Weight 115 lb BMI 20.4 Intake Visit Reasons: OV - epicondylitis of the rt Intake Note: Danni is a 43 year old right hand dominant female who presents today for a follow up for her epicondylitis of the right elbow. Patient reports her last injection didn't give her relief. Yet she still continues to have a lot of pain on her elbow. Patient is having concerns of muscle spasm on her forearm that radiates up to her bicep. She states that her heat and frost insulator helper is weak. Allergies penicillin V Allergy (Unknown, Verified 04/01/23 14:15) rash Penicillins Allergy (Unknown, Verified 04/01/23 14:15) Rash bupropion [From Wellbutrin SR] Adverse Reaction (Intermediate, Verified 04/01/23 14:15) Hallucinations trazodone Adverse Reaction (Intermediate, Verified 04/01/23 14:15) Drowsy Percocet Allergy (Unknown, Uncoded 08/10/22 15:54) itching HPI OV - epicondylitis of the rt HPI Details 43-year-old right hand dominant female marissa guzman presents in the office today for a follow up of right elbow pain. I last saw the patient in the office for right elbow pain on 08/03/2022 when she received a cortisone injection. While in the office today the patient reports her last injection did not give her relief. She states she continues to have a lot of pain. She also reports having muscle spams on her forearm that radiate up to her bicep. She reports having heat and frost insulator helper weakness in the right hand. [facility] Medical History Arthritis Asthma Carpal tunnel syndrome Ectopic Family history of thyroid disease Kienb?ck's disease Surgical History History of carpal tunnel release History of ectopic History of surgery on arm Family History Father Arthritis Diabetes mellitus HTN (hypertension) Asthma Mother Arthritis Asthma Diabetes mellitus HTN (hypertension) Herniated disc Anxiety Mental health disorder Maternal Grandmother Arthritis Diabetes mellitus Maternal Grandfather Arthritis Diabetes mellitus Paternal Grandmother Arthritis Diabetes mellitus Paternal Grandfather Arthritis Diabetes mellitus Social History Housing: Apartment Alcohol intake: current Alcohol intake frequency: holidays/special occasions only Patient Tobacco Use Status: Current everyday Tobacco user Tobacco use type: Cigarette Cigarettes Per Day: 8 e-Cigarette/Vaping Use: Never Used Second Hand Smoke Exposure: Yes service: No Current occupational status: employed 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[employer] Gender identity: Female Cognitive needs: No Hearing needs: No Vision needs: Yes (Glasses) Female Reproductive History Menstrual Age of Menarche: 13 Review of Systems Const All systems reviewed & are unremarkable except as noted in HPI and below Physical Exam Vital Signs: BMI result Body Mass Index 20.4 Const General: cooperative, healthy appearing and no acute distress Resp Effort & Inspection: normal respiratory effort and able to speak in complete sentences Cardio Rate: regular rate Peripheral pulses: Peripheral pulses 2+ throughout GI Palpation (GI): Soft to palpation Skin Lesions: no lesions Rashes: no rashes Extrem Other: Right elbow: Normal to inspection. No ecchymosis, erythema, or edema. Tenderness to palpation over the lateral epicondyle. Able to flex, extend, pronate, and supinate with pain. NVI. Office Procedures Joint Injection/Drain Joint Injection/Drain Primary Site: right tennis elbow Prep: site was prepped using aseptic technique, ethochloride spray was applied and injection warnings given Injected: 40 mg of, DepoMedrol, with 1 mL of (2% plain lido ) and other (lateral epicondyle ) Approach Used: other (lateral epicondyle ) Procedure: The patient tolerated the procedure well, but had some pain with the injection and there was some relief with the local anesthesia Coding 53881 - Epicondyle Procedure code (CPT) selection complete Assessment & Plan Assessment & Plan (1) Lateral epicondylitis of right elbow: Code(s): M77.11 - Lateral epicondylitis, right elbow Plan Ms. Roberts is a 43-year-old right hand dominant female who presents in the office today for a follow up of right elbow pain. I last saw the patient in the office for right elbow pain on 08/03/2022 when she received a cortisone injection. While in the office today the patient reports her last injection did not give her relief. She states she continues to have a lot of pain. She also reports having muscle spams on her forearm that radiate up to her bicep. She reports having heat and frost insulator helper weakness in the right hand. The patient was offered a cortisone injection in the right elbow with 40 mg of DepoMedrol. The patient was explained the risk, benefits, and alternatives to receiving this injection. After receiving consent for the injection, the patient had the procedure done while in office today. The patient tolerated the procedure well with no complications. We discussed the role of physical therapy, which she has attended in the past and had declined to re-attend at this time. Follow up will be PRN, or sooner if needed. Orders: Orders XR wrist LT w scaphoid 02/25/23 M25.539 - Pain in unspecified wrist Patient Instructions: Scribed by [facility], for Sharon Vazquez PA-C on 04/01/2023 at 1:59 pm, EST. Coding Level of Care Code Est Pt Level 3 (08682) Diagnoses Lateral epicondylitis of right elbow M77.11 CPT Codes Coding - Joint 2: 16957 - Epicondyle ([id number])
== END 2023-04-01 14:28 | disposition home or self-care (01) ==
PROVIDERS: PCP Physician Assistant; Visit Provider Physician Assistant
DX: M77.11 Lateral epicondylitis, right elbow (principal)
CPT/HCPCS: 20550; 99213

== ENCOUNTER 2023-04-20 09:45 | Outpatient (AMB) | payer OTHER, SELFPAY ==
--- NOTE | 2023-04-20 09:58 | AM.OFFWIN_ITS ---
Intake Vital Signs 04/20/23 10:25 Height 5 ft 3 in Weight 117 lb BMI 20.7 BP 112/60 Blood Pressure Location Lt brachial Position Sitting Pulse 87 Pulse Source Pulse Oximeter Temp 97.3 F Temp Source Temporal Artery Scan Pulse Oximetry (%) 96 Oxygen Delivery Method Room Air Intake Visit Reasons: EP RT elbow pain/bruised cannot extend (lobby) Intake Note: Pt is yousuf today for rt elbow pain bruised cannot extend started in january Patient Tobacco Use Status: Current everyday Tobacco user Allergies penicillin V Allergy (Unknown, Verified 04/20/23 10:27) rash Penicillins Allergy (Unknown, Verified 04/20/23 10:27) Rash bupropion [From Wellbutrin SR] Adverse Reaction (Intermediate, Verified 04/20/23 10:27) Hallucinations trazodone Adverse Reaction (Intermediate, Verified 04/20/23 10:27) Drowsy Percocet Allergy (Unknown, Uncoded 08/10/22 15:54) itching Do you need a note to return to daycare/school/sports/work: Yes HPI HPI Comments History of Present Illness Details 43 y/o female patient presents to walk i n clinic with c/o right elbow pain. This is a chronic issue and ongoing for 1 year. She was seen and evaluated by Ortho, Had Steroid injections 3 weeks ago with no relief. She has had PT with no much relief. 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 Surgical History History of carpal tunnel release History of ectopic History of surgery on arm Family History Father Arthritis Diabetes mellitus HTN (hypertension) Asthma Mother Arthritis Asthma Diabetes mellitus HTN (hypertension) Herniated disc Anxiety Mental health disorder Maternal Grandmother Arthritis Diabetes mellitus Maternal Grandfather Arthritis Diabetes mellitus Paternal Grandmother Arthritis Diabetes mellitus Paternal Grandfather Arthritis Diabetes mellitus Social History Housing: Apartment Alcohol intake: current Alcohol intake frequency: holidays/special occasions only Patient Tobacco Use Status: Current everyday Tobacco user Tobacco use type: Cigarette Cigarettes Per Day: 8 e-Cigarette/Vaping Use: Never Used Second Hand Smoke Exposure: Yes service: No Current occupational status: employed 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 Cognitive needs: No Hearing needs: No Vision needs: Yes (Glasses) Female Reproductive History Menstrual Age of Menarche: 13 Review of Systems Const All systems reviewed & are unremarkable except as noted in HPI and below Physical Exam Vital Signs: Last Vital Signs Temp 97.3 F 04/20/23 10:25 Pulse 87 04/20/23 10:25 BP 112/60 04/20/23 10:25 Pulse Ox 96 04/20/23 10:25 Oxygen Delivery Method Room Air 04/20/23 10:25 BMI result Body Mass Index 20.7 Const Orientation/consciousness: patient oriented x3 Neuro General: patient oriented x3 and gait normal Extrem Right upper extremity: elbow/forearm Details: normal to inspection, tenderness Location: of the olecranon and abnormal ROM (Limited ROM due to pain. Unable to extend Arm out due to pain. ); no swelling, no unusual warmth, no lacerations, no crepitus and no deformity Assessment & Plan Assessment & Plan (1) Lateral epicondylitis of right elbow: Code(s): M77.11 - Lateral epicondylitis, right elbow Plan: - F/U with PCP - F/U with Ortho Medications: Changed From diclofenac sodium 75 mg PO BID 15 days 30 tabs 0RF M77.11 - Lateral epicondylitis, right elbow To diclofenac sodium 75 mg PO BID 30 tabs 0RF M77.11 - Lateral epicondylitis, right elbow Coding Level of Care Code Est Pt Level 3 (80986) Diagnoses Lateral epicondylitis of right elbow M77.11 Time Spent (min) 15
[2023-04-20 10:25] VITALS: BP 112/60; PULSE 87; TEMP 36.3; O2SAT 96; BMI 20.7
== END 2023-04-20 11:57 | disposition home or self-care (01) ==
PROVIDERS: PCP Physician Assistant; Visit Provider Nurse Practitioner Family
DX: M77.11 Lateral epicondylitis, right elbow (principal)
CPT/HCPCS: 99213

== ENCOUNTER 2023-05-14 09:27 | Outpatient (REF) | payer OTHER, SELFPAY | END 2023-05-14 09:28 | disposition home or self-care (01) | LOC: HO.MAMMO 09:27 | PROVIDERS: PCP Nurse Practitioner Family; Visit Provider Physician Assistant | DX: Z12.31 Encounter for screening mammogram for malignant neoplasm of breast (principal) | CPT/HCPCS: 77063; 77067 ==

== ENCOUNTER → 2023-05-14 10:00 | Outpatient (BNV) | payer OTHER, SELFPAY | PROVIDERS: PCP Nurse Practitioner Family; Visit Provider Radiology Diagnostic Radiology | DX: Z12.31 Encounter for screening mammogram for malignant neoplasm of breast (principal) | CPT/HCPCS: 77063; 77067 ==

== ENCOUNTER 2023-06-18 10:01 | Outpatient (REF) | payer OTHER, SELFPAY ==
[2023-06-18 10:18] LABS: MANUAL DIFF FLAG NO
[2023-06-18 11:15] LABS: Basophils Percent Auto 0.4 % (0-2); Eosinophils Absolute Auto 0.1 X10*3/uL (0.0-0.4); Hematocrit 38.3 % (37.0-47.0); Hemoglobin 12.9 g/dl (12.0-16.0); Imm Gran Abs Auto 0.03 X10*3/uL (0.00-0.03); Imm Gran Pct Auto 0.3 % (0.0-0.4); Lymphocytes Absolute Auto 2.8 X10*3/uL (1.2-4.9); Lymphocytes Percent Auto 26.6 % (20-40); Mean Corpuscular HGB Conc 33.7 g/dl (31.0-35.0); Mean Corpuscular Hemoglobin 30.6 pg (27.0-33.0); Mean Platelet Volume 9.7 fL (9.4-12.3); Monocytes Absolute Auto 0.5 X10*3/uL (0.1-1.2); Monocytes Percent Auto 5.2 % (2-11); Neutrophils Absolute Auto 6.9 x10*3/uL (2.0-8.3); Neutrophils Percent Auto 66.5 % (45-73); Platelet Count 348 X10*3/uL (160-400); Red Blood Count 4.21 X10*6/uL (4.20-5.50); Red Cell Distribution Width 14.4 % (11.0-16.0); White Blood Count 10.4 X10*3/uL (4.8-10.8)
[2023-06-18 12:22] LABS: Alanine Aminotransferase 9 U/L (0-31); Albumin Level 3.8 g/dL (3.5-5.0); Alkaline Phosphatase 56 U/L (39-117); Anion Gap 9 (12-20); Aspartate Amino Transferase 12 U/L (5-31); Bilirubin Total 0.2 mg/dL (0.0-1.0); Blood Urea Nitrogen 6 mg/dL (9-16); Calcium 9.3 mg/dL (8.4-10.2); Carbon Dioxide 30 mmol/L (22-29); Chloride 106 mmol/L (96-108); Estimated Glomerular Filt Rate > 60; Glucose Random 92 mg/dL (60-115); Magnesium 1.9 mg/dL (1.6-2.6); Potassium 4.2 mmol/L (3.3-5.1); Sodium 141 mmol/L (135-145); T4 Thyroxine 6.3 ug/dL (4.5-12.0); Thyroid Stimulating Hormone 0.49 uIU/mL (0.32-4.0); Total Protein 6.5 g/dL (6.5-8.0)
== END 2023-06-18 10:02 | disposition home or self-care (01) ==
LOC: HO.LAB 10:01
PROVIDERS: PCP Nurse Practitioner Family; Visit Provider Nurse Practitioner Family
DX: F41.1 Generalized anxiety disorder (principal); F33.1 Major depressive disorder, recurrent, moderate; R63.4 Abnormal weight loss
CPT/HCPCS: 36415; 80053; 83735; 84436; 84443; 85025

== ENCOUNTER 2024-07-21 08:25 | Outpatient (REF) | payer OTHER, SELFPAY ==
--- OUTSIDE RECORDS SUMMARY | 2024-07-21 08:28 | XMS_ITS | Clinical Summary ---
Author Organization [employer] Address [address] [place] [address] Care Team Providers Care Phototypesetting Equipment Monitor Name Role Phone Unavailable Primary Care Provider Unavailabl e Allergies Active Allergy Reactions Criticality Noted Date Comments Penicillins Itching 12/27/2022 Medications DULoxetine (Cymbalta) [address] capsule Take 60 mg by mouth in the evening. 3 Active mirtazapine (Remeron) 30 MG tablet Take 30 mg by mouth in the morning. 3 Active Ventolin HFA 108 (90 Base) MCG/ACT inhaler INHALE 2 PUFFS EVERY 6 HOURS NEEDED FOR SHORTNESS OF BREATH OR WHEEZING 3 Active Social History Tobacco Use Types Packs/Day Years Used Date Smoking Tobacco: Every Day Cigarettes Smokeless Tobacco: Never Tobacco Cessation:Ready to Q uit: No; Counseling Given: Not Answered Comments Unknown Sex and Gender Information Value Date Recorded Sex Assigned at Female 07/27/2022 2:14 PM EDT Legal Sex Female 2:13 PM EDT Gender Identity Female 07/27/2022 2:14 PM EDT Sexual Orientation Straight 07/27/2022 2: 14 PM EDT Plan of Treatment Health Maintenance Due Date Last Done Comments Dental Oral Exam 1980 Dental Prophylaxis 1980 Depression Screening 1980 HIV Screening 1980 SDOH Screening 1980 Disability Screening 1980 Alcohol/Substance Use Screening 1992 Family Planning (PISQ) 01/17/1995 Hepatitis C Screening 01/17/1998 Hepatitis B Vaccines (1 of 3 - 19+ 3-dose series) 01/17/1999 Pap Smear 01/17/2001 Cervical Cancer Screening 01/17/2010 HPV/Cotest 01/17/2010 Mammogram 2020 Pneumococcal Vaccine: Pediatrics (0 to 5 Years) and At-Risk Patients (6 to 49) Years) (2 of 2 - PCV) 04/14/2021 04/14/2020 DTaP/Tdap/Td Vaccines (2 - T d or Tdap) 03/13/2022 03/13/2012 COVID-19 Vaccine (4 - 2023-2 5 season) 2023 03/20/2021, 07/22/2020, 06/24/2020 Influenza Vaccine (#1) 2023 2, 04/08/2021, 04/14/2020 Tobacco Screening 12/28/2023 12/27/2022 Dental X-Ray: Bitewings 12/29/2023 12/27/2022 Dental X-Ray: Full Mouth 12/28/2025 12/27/2022 Zoster Vaccines (1 of 2) 01/17/2030 RSV Patients and Patients Aged 60 years or older (1 - 1-dose 75+ series) 01/17/2055 HIB Vaccines Aged Out No longer eligi ble based on patient's age to complete this topic HPV Vaccines Aged Out No longer eligi ble based on patient's age to complete this topic Hepatitis A Vaccines Aged Out No long er eligible based on patient's age to complete this topic IPV Vaccines Aged Out No longer eligi ble based on patient's age to complete this topic Meningococcal B Vaccine Aged Out No l onger eligible based on patient's age to complete this topic Meningococcal Vaccine Aged Out No kt donn eligible based on patient's age to complete this topic RSV under 20 months Aged Out No longe r eligible based on patient's age to complete this topic Rotavirus Vaccines Aged Out No longer eligible based on patient's age to complete this topic Procedures Procedure Name Priority Date/Time Associated Diagnosis Comments INTRAORAL - COMPLETE SERIES OF RADIOGRAPHIC IMAGES Routine 12/27/2022 2:00 PM EST Dental caries from Last 3 Months or Most Recently [place]vant [place] [address] [facility]
== END 2024-07-21 08:26 | disposition home or self-care (01) ==
LOC: HO.MAMMO 08:25
PROVIDERS: PCP Internal Medicine; Visit Provider Internal Medicine
DX: Z12.31 Encounter for screening mammogram for malignant neoplasm of breast (principal)
CPT/HCPCS: 77063; 77067

== ENCOUNTER → 2024-07-21 09:00 | Outpatient (BNV) | payer OTHER, SELFPAY | PROVIDERS: PCP Internal Medicine; Visit Provider Internal Medicine | DX: Z12.31 Encounter for screening mammogram for malignant neoplasm of breast (principal) | CPT/HCPCS: 77063; 77067 ==

== ENCOUNTER 2024-12-07 07:45 | Outpatient (REF) | payer OTHER, SELFPAY ==
[2024-12-07 09:46] LABS: MANUAL DIFF FLAG NO
[2024-12-07 09:58] LABS: Hematocrit 38.9 % (37.0-47.0); Hemoglobin 13.4 g/dl (12.0-16.0); Imm Gran Abs Auto 0.02 X10*3/uL (0.00-0.03); Imm Gran Pct Auto 0.2 % (0.0-0.4); Lymphocytes Absolute Auto 2.3 X10*3/uL (1.2-4.9); Mean Corpuscular HGB Conc 34.4 g/dl (31.0-35.0); Mean Corpuscular Hemoglobin 32.1 pg (27.0-33.0); Mean Corpuscular Volume 93.1 fL (80.0-98.0); NRBC Abs Auto 0.000 X10*3/uL (0.0-0.012); NRBC Pct Auto 0.0 /100WBC (0.0-0.2); Platelet Count 286 X10*3/uL (160-400); Red Blood Count 4.18 X10*6/uL (4.20-5.50); White Blood Count 10.3 X10*3/uL (4.8-10.8)
[2024-12-07 11:04] LABS: Appearance Urine Clear; Glucose Urine UA Negative (Negative); PH 5.5 (5.0-9.0); Specific Gravity - Urine 1.025 (1.005-1.025); UMIC TRIGGER UA YES
[2024-12-07 13:21] LABS: Anion Gap 14 (12-20)
[2024-12-07 13:27] LABS: Alanine Aminotransferase 18 U/L (0-31); Albumin Level 4.4 g/dL (3.5-5.0); Alkaline Phosphatase 61 U/L (39-117); Aspartate Amino Transferase 28 U/L (5-31); Blood Urea Nitrogen 9 mg/dL (9-16); Calcium 9.2 mg/dL (8.4-10.2); Carbon Dioxide 23 mmol/L (22-29); Chloride 108 mmol/L (96-108); Cholesterol 140 mg/dL (<200); Estimated Glomerular Filt Rate > 60; HDL Cholesterol 46 mg/dL (>40); Potassium 4.6 mmol/L (3.3-5.1); Sodium 140 mmol/L (135-145); Total Protein 6.9 g/dL (6.5-8.0); Triglycerides 98 mg/dL (<150)
== END 2024-12-07 07:46 | disposition home or self-care (01) ==
LOC: HO.LAB 07:45
PROVIDERS: PCP Nurse Practitioner Family; Visit Provider Internal Medicine
DX: Z00.00 Encounter for general adult medical examination without abnormal findings (principal); Z79.899 Other long term (current) drug therapy
CPT/HCPCS: 36415; 80053; 80061; 81001; 82306; 84443; 85025; 96127

== ENCOUNTER 2024-12-07 07:45 | Outpatient (AMB) | payer OTHER, SELFPAY ==
--- OUTSIDE RECORDS SUMMARY | 2024-12-07 07:48 | XMS_ITS | Clinical Summary ---
Author Organization [employer] Address [address] [place] [address] Care Team Providers Care Manager Background Name Role Phone Unavailable Primary Care Provider [...] Use Screening 1992 Family Planning (PISQ) 01/17/1995 HPV Vaccines (1 - 3-dose series) 01/17/1995 Hepatitis C Screening 01/17/1998 Hepatitis B Vaccines (1 of 3 - 19+ 3-dose series) 01/17/1999 Pap Smear 01/17/2001 Cervical Cancer Screening 01/17/2010 HPV/Cotest 01/17/2010 Mammogram 2020 Pneumococcal Vaccine: Pediatrics (0 to 5 Years) and At-Risk Patients (6 to 49) Years (2 of 2 - PCV) 04/14/2021 04/14/2020 DTaP/Tdap/Td Vaccines (2 - T d or Tdap) 03/13/2022 03/13/2012 Tobacco Screening 12/28/2023 12/27/2022 Dental X-Ray: Bitewings 12/29/2023 12/27/2022 COVID-19 Vaccine (4 - 2024-2 6 season) 2024 03/20/2021, 07/22/2020, 06/24/2020 Influenza Vaccine (#1) 2024 , 04/08/2021, 04/14/2020 Dental X-Ray: Full Mouth 12/28/2025 12/27/2022 Zoster [...] Most Recently Relevant to Health Maintenance Insurance [facility] [employer] ST[place] AD[place]
--- NOTE | 2024-12-07 08:07 | MHC.PC.OV ---
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 Allergies penicillin V Allergy (Unknown, Verified 12/07/24 08:09) rash Penicillins Allergy (Unknown, Verified 12/07/24 08:09) Rash bupropion (From Wellbutrin SR) Adverse Reaction (Intermediate, Verified 12/07/24 08:09) Hallucinations trazodone Adverse Reaction (Intermediate, Verified 12/07/24 08:09) Drowsy Percocet Allergy (Unknown, Uncoded 12/07/24 08:09) itching Medication List - Last Reconciled 12/07/24 by Chiqui Galan MD acetaminophen 500 mg PO Q6H PRN 15 days albuterol sulfate 2.5 mg (3 mL) inhalation Q6H PRN albuterol sulfate 90 mcg/actuation 2 puffs inhalation Q6H PRN clindamycin phosphate 1% (Clindagel) 1 appl topical DAILY PRN 10 days diclofenac sodium 75 mg PO BID duloxetine 30 mg PO DAILY ferrous sulfate 325 mg PO DAILY 90 days fluticasone propionate 110 mcg/actuation (Flovent HFA) 1 puff inhalation BID 30 days mirtazapine 30 mg PO DAILY 90 days montelukast (Singulair) 10 mg PO BEDTIME 90 days nebulizers (AeroEclipse II Nebulizer) As directed nicotine (Nicotrol) 1 inh inhalation Q2-4H PRN 30 days nicotine 1 patch transdermal DAILY triamcinolone acetonide 0.1% 1 appl topical DAILY 15 days Tobacco use date assessed: 12/07/24 Dental Screening Dental Screen Date: 12/07/24 Did you have a dental visit in the last 12 months?: Yes Did you have a dental problem in the last 6 months where you did not have access to dental care?: No Was dental information given to patient?: 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 Pt c/o increased sweating in axillary region for a few months. She denies hot flash Pt c/o increased abdominal bloating and flatulence but no change in BMs. Patient has been drinking six cups of coffee with half and half. 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 Carpal tunnel syndrome Family history of thyroid disease Arthritis Asthma Surgical History History of carpal tunnel release History of surgery on arm History of ectopic Family History Father Arthritis Diabetes mellitus HTN (hypertension) Asthma Mother Arthritis Asthma Diabetes mellitus HTN (hypertension) Herniated disc Anxiety Mental health disorder Maternal Grandmother Arthritis Diabetes mellitus Maternal Grandfather Arthritis Diabetes mellitus Paternal Grandmother Arthritis Diabetes mellitus Paternal Grandfather Arthritis Diabetes mellitus Social History (Updated 12/07/24 @ 08:37 by Chiqui Galan MD) Household Members 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, 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, 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[place], 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 Housing: Apartment Alcohol intake: current Alcohol intake frequency: holidays/special occasions only Patient Tobacco Use Status: Current everyday Tobacco user Tobacco use type: Cigarette Cigarettes Per Day: 8 e-Cigarette/Vaping Use: Never Used Second Hand Smoke Exposure: Yes service: No Current occupational status: employed 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 1. Little interest or pleasure in doing things: not at all 2. Feeling down, depressed, or hopeless: not at all 3. Trouble falling or staying asleep, or sleeping too much: several days 4. Feeling tired or having little energy: several days 5. Poor appetite or overeating: more than half the days 6. Feeling bad about yourself - or that you are a failure or have let yourself or your family down: not at all 7. Trouble concentrating on things, such as reading the newspaper or watching television: nearly every day 8. Moving or speaking so slowly that other people could have noticed. Or the opposite - being so fidgety or restless that you have been moving around a lot more than usual: nearly every day 9. Thoughts that you would be better off or of hurting yourself in some way: not at all Total score: 10 Depression Screening Interpretation: Positive (pt not interested in meds and counseling) Depression Screening Follow-up: Existing condition Depression Screening Done: Yes 95219 - PHQ-9 Billing: Yes Source: Developed by Drs. Christian Horton, Tere Cordova, Hugo Murillo and colleagues, with an educational marleni from [employer]. Thrive Questionnaire Date Thrive assessed: 12/07/24 I am a: Patient What is your living situation today?: I have a steady place to live Within the past 12 months, did the food you bought not last and you didn't have the money to get more?: Never true Within the past 12 months, did you worry whether your food would run out before you got money to buy more?: Never true Do you have trouble paying for medicines?: Yes Do you have trouble getting transportation to medical appointments?: Yes Do you have trouble paying your heating and electricity bill?: Yes Do you have trouble taking care of your child, family member or friend?: No Do you have trouble with day-to-day activities such as bathing, preparing meals, shopping, managing finances, etc.?: No Are you currently unemployed and looking for a job?: No Are you interested in more education?: No Please select the resources that you would like help with: Transportation and Utilities Currently or been in a relationship where the following occur: No concerns reported THRIVE Score: 2 AUDIT C Alcohol Use Questionnaire (AUDIT-C) 1. How often do you have a drink containing alcohol?: Monthly or less 2. How many drinks containing alcohol do you have on a typical day when you are drinking?: 3 or 4 3. How often do you have six or more drinks on one occasion?: Less than monthly Total Score: 3 TOSHIA-7 AMB Questionnaire TOSHIA-7 Date TOSHIA - 7 assessed: 12/07/24 Feeling nervous, anxious, or on edge: 3 = Nearly every day Not being able to stop or control worryin = Several days Worrying too much about different things: 3 = Nearly every day Trouble relaxin = Nearly every day Being so restless that it is hard to sit still: 3 = Nearly every day Becoming easily annoyed or irritable: 3 = Nearly every day Feeling afraid as if something awful might happen: 1 = Several days Total TOSHIA-7 score (0-4 normal; 5-9 mild; 10-14 moderate; 15-21 severe): 17 Source: Developed by Drs. Christian Horton, Tere Cordova, Hugo Murillo and colleagues, with an educational marleni from [employer]. TOSHIA-7 Assessment Billing TOSHIA-7 Assessment Tool: TOSHIA-7 Assessment 19194 Review of Systems Const All systems reviewed & are unremarkable except as noted in HPI and below Eyes Reports no additional complaints ENT Reports no additional complaints Card Reports no additional complaints Resp Reports no additional complaints GI Reports no additional complaints Reports no additional complaints Physical exam (Primary Care) Vital Signs: Last Vital Signs Temp 98.3 F 12/07/24 08:08 Pulse 82 12/07/24 08:08 Resp 19 12/07/24 08:08 BP 118/74 12/07/24 08:08 Pulse Ox 98 12/07/24 08:08 Oxygen Delivery Method Room Air 12/07/24 08:08 BMI result Body Mass Index 21.3 Tobacco/Smoking Status: Tobacco use Status Tobacco use date assessed 12/07/24 12/07/24 08:14 Patient Tobacco Use Status Current everyday Tobacco 12/07/24 08:14 Tobacco use type Cigarette 12/07/24 08:14 e-Cigarette/Vaping Use Never Used 12/07/24 08:14 PHQ-9: PHQ-9 Score PHQ-9: Total score 10 12/07/24 08:14 Depression Screening Interpretation: Positive (pt not interested in meds and counseling) Depression Screening Follow-up: Existing condition Thrive Assessment: Date of Thrive Assessment Date Thrive assessed 12/07/24 12/07/24 08:14 Currently or been in a relationship where the following occur: No concerns reported Const General: no acute distress HENMT Head: Yes normal to inspection Ears: hearing grossly normal bilaterally Face and sinus: Yes normal facial exam Mouth: Normal oral and palatal mucosa present Throat: Yes posterior oropharynx normal Eyes General: appearance normal, both eyes and all related structures Neck Neck: Yes no lymphadenopathy and Yes supple Resp Effort & Inspection: normal respiratory effort Auscultation: clear to auscultation bilaterally Cardio Rhythm: regular rhythm Heart sounds: S1 normal heart sound present and S2 normal heart sound present GI Inspection: Yes normal to inspection Palpation (GI): Soft to palpation Percussion: Yes normal to percussion Auscultation: normal bowel sounds Coding Level of Care Code Est Pt Prev Care 40-64y(77548) Diagnoses Annual physical exam Z00.00 Additional Codes TOSHIA-7 Assessment Billing - TOSHIA-7 Assessment Tool: TOSHIA-7 Assessment 05628 ([id number]) PHQ-9 - 26788 - PHQ-9 Billing: Yes ([id number]) Assessment & Plan Assessment & Plan (1) Annual physical exam: Code(s): Z00.00 - Encounter for general adult medical examination without abnormal findings Category: Medical Plan: well balanced diet, regular exercise discussed. Patient will have a fasting blood work. She will be referred to obstetrics and gynecology professor for a pelvic exam. Patient is established with [facility]. Cologuard will be checked. For increase axillary sweating Drysol will be tried. Tobacco quitting discussed with the patient. She will try nicotine patch Orders: Orders Complete Blood Count Auto Diff Today Z00.00 - Encounter for general adult medical examination without abnormal findings TSH reflex Free T4 Today Z00.00 - Encounter for general adult medical examination without abnormal findings Comprehensive Met. Panel Today Z00.00 - Encounter for general adult medical examination without abnormal findings Vitamin D 25-OH Total Today Z00.00 - Encounter for general adult medical examination without abnormal findings Lipid Panel Today Z00.00 - Encounter for general adult medical examination without abnormal findings UA w Microscopic Today Z00.00 - Encounter for general adult medical examination without abnormal findings Referrals Cologuard Test Z12.11 - Encounter for screening for malignant neoplasm of colon, Z12.12 - Encounter for screening for malignant neoplasm of rectum COMPUTATIONAL SCIENCES PROFESSOR Referral Z00.00 - Encounter for general adult medical examination without abnormal findings Medications: New Drysol 20% (aluminum chloride) 1 appl topical 2XW PRN 37.5 mL 4RF excessive sweating NS nicotine 1 patch transdermal DAILY 28 ea 3RF Discontinued fluticasone propionate 110 mcg/actuation (Flovent HFA) Discontinued Reason: Doctor's Order 1 puff inhalation BID 30 days 12 grams 3RF J45.909 - Unspecified asthma, uncomplicated clindamycin phosphate 1% (Clindagel) Discontinued Reason: Doctor's Order 1 appl topical DAILY 10 days PRN 75 mL 0RF acne L73.9 - Follicular disorder, unspecified albuterol sulfate Discontinued Reason: Doctor's Order 2.5 mg (3 mL) inhalation Q6H PRN 150 mL 1RF for wheezing J45.909 - Unspecified asthma, uncomplicated nicotine (Nicotrol) Discontinued Reason: Doctor's Order 1 inh inhalation Q2-4H 30 days PRN 168 ea 1RF nicotine cravings F17.200 - Nicotine dependence, unspecified, uncomplicated acetaminophen Discontinued Reason: Doctor's Order 500 mg PO Q6H 15 days PRN 60 caps 0RF fever M79.603 - Pain in arm, unspecified ferrous sulfate Discontinued Reason: Doctor's Order 325 mg PO DAILY 90 days 90 tabs 1RF D50.9 - Iron deficiency anemia, unspecified, R53.1 - Weakness diclofenac sodium Discontinued Reason: Doctor's Order 75 mg PO BID 30 tabs 0RF M77.11 - Lateral epicondylitis, right elbow montelukast (Singulair) Discontinued Reason: Doctor's Order 10 mg PO BEDTIME 90 days 90 tabs 2RF J45.909 - Unspecified asthma, uncomplicated albuterol sulfate 90 mcg/actuation Discontinued Reason: Doctor's Order 2 puffs inhalation Q6H PRN 6.7 grams 0RF shortness of breath or wheezing mirtazapine Discontinued Reason: Doctor's Order 30 mg PO DAILY 90 days 90 tabs 6RF F33.1 - Major depressive disorder, recurrent, moderate triamcinolone acetonide 0.1% Discontinued Reason: Doctor's Order 1 appl topical DAILY 15 days 30 grams 0RF L30.9 - Dermatitis, unspecified
[2024-12-07 08:08] VITALS: BP 118/74; PULSE 82; RESP 19; TEMP 36.8; O2SAT 98; BMI 21.3
== END 2024-12-07 09:30 | disposition home or self-care (01) ==
PROVIDERS: PCP Nurse Practitioner Family; Visit Provider Internal Medicine
DX: Z00.00 Encounter for general adult medical examination without abnormal findings (principal)

== ENCOUNTER 2025-01-29 11:56 | Outpatient (REF) | payer OTHER, SELFPAY ==
--- OUTSIDE RECORDS SUMMARY | 2025-01-29 18:50 | XMS_ITS | Clinical Summary ---
Author Organization [employer] Address [address] [place] [address] Care Team Providers Care Drawer In Name Role Phone Unavailable Primary Care Provider [...] Health Maintenance Due Date Last Done Comments CT Colonography 1980 Colonoscopy 1980 Colorectal Cancer Screening 1980 Dental Oral Exam 1980 Dental Prophylaxis 1980 Depression Screening 1980 FIT DNA/Cologuard 1980 FIT 1980 FOBT 1980 HIV Screening 1980 SDOH Screening 1980 Sigmoidoscopy 1980 Disability Screening 1980 Alcohol/Substance Use Screening [...]
== END 2025-01-29 11:57 | disposition home or self-care (01) ==
LOC: HO.LNP 11:56
PROVIDERS: PCP Internal Medicine; Visit Provider Internal Medicine
DX: Z00.00 Encounter for general adult medical examination without abnormal findings (principal); R61 Generalized hyperhidrosis
CPT/HCPCS: 87626; 88175

== ENCOUNTER 2025-01-29 11:56 | Outpatient (AMB) | payer OTHER, SELFPAY ==
--- NOTE | 2025-01-29 12:14 | A.OFFPC_ITS ---
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 Required: No Accompanied by: Self / Same As Patient Allergies penicillin V Allergy (Unknown, Verified 01/29/25 12:16) rash Penicillins Allergy (Unknown, Verified 01/29/25 12:16) Rash bupropion (From Wellbutrin SR) Adverse Reaction (Intermediate, Verified 01/29/25 12:16) Hallucinations trazodone Adverse Reaction (Intermediate, Verified 01/29/25 12:16) Drowsy Percocet Allergy (Unknown, Uncoded 12/07/24 08:09) itching Medication List - Last Reconciled 01/29/25 by Chiqui Galan MD Drysol 20% (aluminum chloride) 1 appl topical 2XW PRN NS Tobacco use date assessed: 01/29/25 Dental Screening Dental Screen Date: 01/29/25 Did you have a dental visit in the last 12 months?: No Did you have a dental problem in the last 6 months where you did not have access to dental care?: No Was dental information given to patient?: Patient has dentist HPI PAP rescheduled HPI Details Patient presents for follow-up of axillary hyperhidrosis without significant relief after using Drysol for 2 months. 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 Carpal tunnel syndrome Family history of thyroid disease Arthritis Asthma Surgical History History of carpal tunnel release History of surgery on arm History of ectopic Family History Father Arthritis Diabetes mellitus HTN (hypertension) Asthma Mother Arthritis Asthma Diabetes mellitus HTN (hypertension) Herniated disc Anxiety Mental health disorder Maternal Grandmother Arthritis Diabetes mellitus Maternal Grandfather Arthritis Diabetes mellitus Paternal Grandmother Arthritis Diabetes mellitus Paternal Grandfather Arthritis Diabetes mellitus Social History Household Members 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, 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, 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[place], 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 Housing: 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 Alcohol intake: current Alcohol intake frequency: holidays/special occasions only Patient Tobacco Use Status: Current everyday Tobacco user Tobacco use type: Cigarette Cigarettes Per Day: 8 e-Cigarette/Vaping Use: Never Used Second Hand Smoke Exposure: Yes service: No Current occupational status: employed 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 Cognitive needs: No Hearing needs: No Vision needs: Yes (Glasses) Female Reproductive History Menstrual Age of Menarche: 13 Questionnaire Thrive Questionnaire Date Thrive assessed: 12/07/24 I am a: Patient What is your living situation today?: I have a steady place to live Within the past 12 months, did the food you bought not last and you didn't have the money to get more?: Never true Within the past 12 months, did you worry whether your food would run out before you got money to buy more?: Never true Do you have trouble paying for medicines?: Yes Do you have trouble getting transportation to medical appointments?: Yes Do you have trouble paying your heating and electricity bill?: Yes Do you have trouble taking care of your child, family member or friend?: No Do you have trouble with day-to-day activities such as bathing, preparing meals, shopping, managing finances, etc.?: No Are you currently unemployed and looking for a job?: No Are you interested in more education?: No Currently or been in a relationship where the following occur: No concerns reported THRIVE Score: 2 TOSHIA-7 AMB Questionnaire TOSHIA-7 Date TOSHIA - 7 assessed: 12/07/24 Source: Developed by Drs. Christian Horton, Tere Cordova, Hugo Murillo and colleagues, with an educational marleni from [employer]. Review of Systems Const All systems reviewed & are unremarkable except as noted in HPI and below Eyes Reports no additional complaints ENT Reports no additional complaints Card Reports no additional complaints Resp Reports no additional complaints GI Reports no additional complaints Reports no additional complaints Physical exam (Primary Care) Vital Signs: Last Vital Signs Pulse 84 01/29/25 12:16 Resp 18 01/29/25 12:16 BP 128/84 01/29/25 12:16 Pulse Ox 100 01/29/25 12:16 Oxygen Delivery Method Room Air 01/29/25 12:16 BMI result Body Mass Index 21.8 Tobacco/Smoking Status: Tobacco use Status Tobacco use date assessed 01/29/25 01/29/25 12:24 Patient Tobacco Use Status Current everyday Tobacco 01/29/25 12:15 Tobacco use type Cigarette 01/29/25 12:15 e-Cigarette/Vaping Use Never Used 01/29/25 12:15 Thrive Assessment: Date of Thrive Assessment Date Thrive assessed 12/07/24 01/29/25 12:15 Currently or been in a relationship where the following occur: No concerns reported Const General: no acute distress HENMT Head: Yes normal to inspection Mouth: Normal oral and palatal mucosa present Resp Effort & Inspection: normal respiratory effort Auscultation: clear to auscultation bilaterally Cardio Rhythm: regular rhythm Heart sounds: S1 normal heart sound present and S2 normal heart sound present External Female Exam: normal external appearance Speculum Exam - Vagina: normal appearance of the vagina Speculum Exam - Cervix: normal appearance of the cervix Bimanual exam- vagina & uterus: normal bimanual exam Coding Level of Care Code Est Pt Level 3 (08173) Diagnoses Hyperhidrosis R61 Annual physical exam Z00.00 Assessment & Plan Assessment & Plan (1) Hyperhidrosis: Code(s): R61 - Generalized hyperhidrosis Category: Medical Plan: Referred to dermatology (2) Annual physical exam: Code(s): Z00.00 - Encounter for general adult medical examination without abnormal findings Category: Medical Plan: Pap smear was done today, Cologuard will be reordered as the patient has not received a kit since the beginning of November. Orders: Orders Pap Smear Today Z00.00 - Encounter for general adult medical examination without abnormal findings Referrals Cologuard Test Z12.11 - Encounter for screening for malignant neoplasm of colon, Z12.12 - Encounter for screening for malignant neoplasm of rectum Dermatology Referral R61 - Generalized hyperhidrosis
[2025-01-29 12:16] VITALS: BP 128/84; PULSE 84; RESP 18; O2SAT 100; BMI 21.8
== END 2025-01-29 13:47 | disposition home or self-care (01) ==
LOC: HO.HMCC 11:57
PROVIDERS: PCP Internal Medicine; Visit Provider Internal Medicine
DX: R61 Generalized hyperhidrosis (principal); Z00.00 Encounter for general adult medical examination without abnormal findings